=== PATIENT | female | born 1995 | race Caucasian/White ===

== ENCOUNTER 2022-04-26 06:59 | Inpatient (IN) | payer OTHER, SELFPAY ==
[2022-04-26] VITALS (34 sets, daily range): BP systolic 120–195; BP diastolic 58–115; PULSE 70–137; RESP 16–18; TEMP 36.4–37.1; O2SAT 80–100; BMI 25.0
[2022-04-26 07:49] LABS: SARS PCR* Negative SARS-CoV-2 (Negative)
[2022-04-26] MEDS: LACTATED RINGERS 1000 ML 1,000 ML 125 ML IV (08:14)
[2022-04-26] MEDS: fentaNYL 100 MCG/2 ML inj 25 MCG INTRATHECA (08:30)
--- NOTE | 2022-04-26 08:38 | PM.ANBPRC ---
PFSH PFSH Social History Smoking Status: Former smoker Meds Home Medications and Allergies Allergies Allergy/AdvReac Type Severity Reaction Status Date / Time No Known Drug Allergies Allergy Verified 04/26/22 07:03 Results Labs Labs: Laboratory Results - last 24 hr 04/26/22 07:03 SARS-CoV-2 (PCR) Negative SARS-CoV-2 Vital Signs Vital Signs: Last Vital Signs Temp 98.3 F 04/26/22 07:15 Pulse 71 04/26/22 08:38 Resp 16 04/26/22 07:15 BP 126/67 04/26/22 08:38 Pulse Ox 100 04/26/22 08:34 Weight: 72.665 kg Height: 170.18 cm Anesthesia Procedures Intrathecal Patient Location: OB Start Time: 08:25 Stop Time: 08:40 Start Date: 04/26/22 Stop Date: 04/26/22 Reason for Block: procedure for pain Patient Position: sitting Performed By: Yohan Hidalgo Preanesthetic Checklist: IV checked, site marked, risks and benefits discussed, monitors and equipment checked, pre-op evaluation, timeout performed and anesthesia consent Prep: chlorhexidine gluconate Monitoring: blood pressure monitoring, continuous pulse oximetry and heart rate Approach: midline Vertebral Space: lumbar (1-5) Needle Type: Sprotte Injection Technique: single-shot Needle gauge: 24
[2022-04-26] MEDS: OXYTOCIN 30 unit/500 ML in NS 30 UNIT/500 ML BAG 300 UNIT IVPB (09:05)
--- NOTE | 2022-04-26 10:14 | P.OBHP_ITS ---
OB - H&P: HPI Labor/Induction History of Present Illness Time Seen by Provider: 08:00 Date Seen: 04/26/22 Chief Complaint: The patient is a 27 year old 2 para 1 at 40+3 weeks gestation by LMP c/w early US, who presents with contractions. Chief complaint: Maternity : 2 Para: 1 Narrative: Lizbeth Armijo is a 27 year old female at 40+3 weeks gestation by LMP c/w early US who presents with contraction starting overnight. Patient notes that she started to experience low back, cramping pain last evening. She was able to go to sleep around 1:00 a.m., then woke up several hours later with contractions. These became more intense and frequent, presented to Labor and delivery around 7:00 a.m. she was found to be 5cm dilated. GBS negative. Rece ived intrathecal analgesia for pain control. She progressed to complete and a live female infant at 9:03 a.m. baby did require some resuscitation. Eventually brought to the maternal chest. Mom and baby are currently resting comfortably. History of Present Dating criteria: based on LMP care: good care Abnormal ultrasound findings: First-trimester ultrasound consistent with LMP dating. Subchorionic hemorrhage, otherwise normal. 20 week survey without intrinsic abnormalities. EFW to 16th percentile. 28 week growth ultrasound showed EFW 9th percentile, 1229 g. 29 week level 2 ultrasound with perinatology showed EF to be 22nd percentile, 1647 g. Normal anatomic survey. No additional monitoring recommended. Labs Blood type: B (+) positive Rubella: immune RPR/VDLR: nonreactive GBS status: negative HBsAG: negative Review of Systems Status of ROS: Reports: 10 or more systems reviewed and unremarkable except as noted in History and below Meds Home Medications and Allergies Home Medications Medication Instructions Recorded Confirmed Type sertraline 25 mg tablet 25 mg PO BID 04/26/22 04/26/22 History Allergies Allergy/AdvReac Type Severity Reaction Status Date / Time No Known Drug Allergies Allergy Verified 04/26/22 07:03 OB - H&P: Exam Physical Exam: Vital signs: Temp Pulse Resp BP Pulse Ox 98.6 F 85 16 139/63 97 04/26/22 09:35 04/26/22 10:10 04/26/22 09:52 04/26/22 10:10 04/26/22 09:00 Narrative: General appearance: Well-appearing adult female. Alert, oriented and appropri ate. Breathing through contractions. HEENT: EOMI, no conjunctival injection or discharge. Mucous membranes moist. Neck: Supple. Cardiovascular: Regular rate and rhythm, no rubs, murmurs or extra heart sounds. Pulmonary: Clear to auscultation bilaterally. No wheezes, rales or rhonchi. Abdomen: Carotid. MSK: Moving all extremities. Extremities: Warm and well perfused. No lower extremity edema. Neuro: No focal deficits. Psych: Normal affect. Detailed Labor and Delivery Exam: Dilation (cm): 8 Effacement (%): 100 Cervix position: anterior Fetus (Single): Station: +1 Amniotic Membrane Status: intact Heart Rate Baseline: 120 Monitor Accelerations: Present [employer] Variability: Moderate (6-25) OB - Problem Based A/P Additional Plan (1) Term : Status: Acute Plan - Normal post- cares - Post- hgb - Encourage
--- NOTE | 2022-04-26 10:40 | W.PM.GYNPROC ---
Procedure Note Time Seen by Provider: 08:00 Date Seen: 04/26/22 Procedure Details: The patient presented to Labor and delivery with regular contractions starting around 0300. Found to be 5/75%/-1. GBS negative. Patient desired water , consent previously signed in clinic. She got in the tub baths, but shortly thereafter decided to exit the tub. She requested epidural for pain control. Cervix was found to be 8/100/1. Anesthesia placed intrathecal with fair results. SROM occurred at an unknown time for clear fluid. Found to be complete at 855, and started pushing. As the patient crown, heart tones were in the 60s, estimated less than 1 minute. A live female infant was delivered over an intact perineum at 9:03 a.m. Cord was clamped and cut after 1 minute. Infant was brought to the warmer for resuscitation. Patient received IV Pitocin and there was active management of the 3rd stage. Intact placenta delivered at 9:35 a.m. Noted to have moderate calcifications. This will be sent for pathology due to SGA. There were no lacerations. QBL was 150 mL. Apgars were 6, 5 and 7. Resuscitation was performed by Dr. Abdalla. See his documentation for further details. and mother are now resting comfortably together.
[2022-04-26] MEDS: ACETAMINOPHEN 500 MG TABLET 1000 MG PO ×3 (11:07→22:01)
[2022-04-26] MEDS: IBUPROFEN 600 MG TABLET PO ×2 (12:50→18:40)
[2022-04-26] MEDS: SERTRALINE 50 MG TABLET 25 MG PO (22:01)
[2022-04-27 01:08] VITALS: BP 132/73; PULSE 58; RESP 16; TEMP 36.6; O2SAT 97
[2022-04-27] MEDS: IBUPROFEN 600 MG TABLET PO ×2 (01:26→07:36)
[2022-04-27 04:06] VITALS: BP 129/85; PULSE 64; RESP 16; TEMP 36.7; O2SAT 97
[2022-04-27] MEDS: ACETAMINOPHEN 500 MG TABLET 1000 MG PO ×2 (04:10→11:42)
--- NOTE | 2022-04-27 07:46 | P.DS_ITS ---
DS: Providers Provider Time Seen by Provider: 07:46 Date Seen: 04/27/22 Date of admission: 04/26/22 06:59 Primary care physician: Isadora Villaseñor MD Admitting Clinician: Bonnie Matos MD Attending Physician on discharge: Joan Burks MD Date of Discharge: 04/27/22 DS: Diagnosis Discharge Diagnosis (1) (normal spontaneous vaginal delivery): Status: Acute (2) Breast feeding status of mother: Status: Acute (3) Term : Status: Acute Exam Const: Vital Signs, click to edit/add: Vital Signs - 24 hr 04/26/22 08:34 04/26/22 08:38 04/26/22 08:39 Temperature Pulse Rate 71 Pulse Rate [Pulse Oximeter] Respiratory Rate Blood Pressure 126/67 Blood Pressure [Le ft Arm] Pulse Oximetry 100 99 Oxygen Delivery Me thod 04/26/22 08:40 04/26/22 08:42 04/26/22 08:44 Temperature Pulse Rate 77 100 77 Pulse Rate [Pulse Oximeter] Respiratory Rate Blood Pressure 137/80 134/92 H 130/71 Blood Pressure [Le ft Arm] Pulse Oximetry 98 Oxygen Delivery Me thod 04/26/22 08:46 04/26/22 08:48 04/26/22 08:50 Temperature Pulse Rate 85 100 78 Pulse Rate [Pulse Oximeter] Respiratory Rate Blood Pressure 145/78 H 131/58 L 123/59 L Blood Pressure [Le ft Arm] Pulse Oximetry Oxygen Delivery Me thod 04/26/22 08:52 04/26/22 08:54 04/26/22 08:55 Temperature Pulse Rate 86 80 Pulse Rate [Pulse Oximeter] Respiratory Rate Blood Pressure 123/65 139/67 Blood Pressure [Le ft Arm] Pulse Oximetry 98 Oxygen Delivery Me thod 04/26/22 08:56 04/26/22 08:58 04/26/22 09:00 Temperature Pulse Rate 100 120 H 112 H Pulse Rate [Pulse Oximeter] Respiratory Rate Blood Pressure 143/73 H 131/79 139/86 Blood Pressure [Le ft Arm] Pulse Oximetry 97 Oxygen Delivery Me thod 04/26/22 09:03 04/26/22 09:19 04/26/22 09:36 Temperature 97.6 F Pulse Rate 104 H 80 Pulse Rate [Pulse Oximeter] Respiratory Rate 16 Blood Pressure 195/115 H 127/73 Blood Pressure [Le ft Arm] Pulse Oximetry Oxygen Delivery [place] thod 04/26/22 09:52 04/26/22 10:10 04/26/22 10:22 Temperature Pulse Rate 89 85 71 Pulse Rate [Pulse Oximeter] Respiratory Rate Blood Pressure 123/61 139/63 133/65 Blood Pressure [Le ft Arm] Pulse Oximetry Oxygen Delivery Ky thod 04/26/22 10:37 04/26/22 10:52 04/26/22 11:07 Temperature Pulse Rate 70 76 75 Pulse Rate [Pulse Oximeter] Respiratory Rate Blood Pressure 125/71 124/71 129/79 Blood Pressure [Le ft Arm] Pulse Oximetry Oxygen Delivery Ky thod 04/26/22 11:22 04/26/22 11:37 04/26/22 09:35 Temperature 98.6 F Pulse Rate 78 77 Pulse Rate [Pulse Oximeter] Respiratory Rate 18 Blood Pressure 131/75 128/69 Blood Pressure [Le ft Arm] Pulse Oximetry Oxygen Delivery Ky thod 04/26/22 09:52 04/26/22 10:22 04/26/22 10:37 Temperature 98.3 F Pulse Rate Pulse Rate [Pulse Oximeter] Respiratory Rate 16 16 18 Blood Pressure Blood Pressure [Le ft Arm] Pulse Oximetry Oxygen Delivery Ky thod 04/26/22 10:52 04/26/22 11:08 04/26/22 11:22 Temperature 98.6 F 98.2 F 98.6 F Pulse Rate Pulse Rate [Pulse Oximeter] Respiratory Rate 18 16 16 Blood Pressure Blood Pressure [Le ft Arm] Pulse Oximetry Oxygen Delivery Ky thod 04/26/22 11:37 04/26/22 12:47 04/26/22 10:09 Temperature 98.3 F 98.1 F 98.4 F Pulse Rate Pulse Rate [Pulse Oximeter] 78 Respiratory Rate 16 16 16 Blood Pressure Blood Pressure [Le ft Arm] 120/73 Pulse Oximetry [facility] 04/26/22 16:34 04/26/22 20:21 04/27/22 01:08 Temperature 98.7 F 98.2 F 97.9 F Pulse Rate Pulse Rate [Pulse Oximeter] 73 75 58 L Respiratory Rate 16 16 16 Blood Pressure Blood Pressure [Le ft Arm] 129/80 125/78 132/73 Pulse Oximetry 96 97 [facility] Room Air 04/27/22 04:06 Temperature 98.1 F Pulse Rate Pulse Rate [Pulse Oximeter] 64 Respiratory Rate 16 Blood Pressure Blood Pressure [Le ft Arm] 129/85 Pulse Oximetry 97 Oxygen Delivery Me thod Room Air Documenting provider has reviewed patient's vital signs: yes Common normals: no apparent distress, average body habitus and oriented x3 General appearance: cooperative and comfortable HENMT: Common normals: normocephalic and head/scalp atraumatic Head and scalp: normocephalic and atraumatic Neck & C-Spine: Common normals: full ROM Chest: Common normals: inspection of chest normal Resp: Common normals: normal respiratory effort and clear to auscultation bilaterally Auscultation: clear to auscultation bilaterally Cardio: Common normals: regular rate, regular rhythm, S1 normal heart sound, S2 normal heart sound and no murmurs Rate: regular rate Rhythm: regular rhythm Heart sounds: S1 normal and S2 normal : Uterus: U/1 Manual OB Exam: deferred Extremity: Common normals: normal to inspection, no calf tenderness and no pedal edema Neuro: Common normals: oriented x3 Psych: Appearance: grossly normal Skin: Common normals: no rashes or lesions noted General skin exam: no darrion hes or lesions noted OB - DS: Summary Hospital Course Hospital Course: The patient is a 27 year old G 2 P 2 at 40w3d gestation that was admitted to the Center on 04/26/22 for active labor. She had an uncomplicated vaginal delivery. She delivered a viable female infant. She is breast feeding. Postpartu m the patient has done well. Peripartum Data delivery method: Vaginal complications: retained placenta (35 minutes after delivery came spontaneously) Gender: Female Discharge Plan: Home Time Spent with Patient Time attestation: Total time spent providing and/or coordinating discharge services: Discharge Plan Discharge Disposition: Home, Self-Care Date of Admission: 04/26/22 06:59 Attending Provider on Discharge: Joan Burks Primary Care Provider: Isadora Villaseñor I Condition: Stable Anticipated Discharge Date/Time: 04/27/22 11:00 Discharge Medications: Continued sertraline 25 mg tablet 25 mg PO BID Label Comments: Take 2 Tablets (50 mg) by mouth at bedtime. Discharge Orders: Discharge Order (Routine); Ordered 04/27/22 Ordered By: Joan Burks Consulting provider completed their portion of the discharge: Yes Patient Education: OB Vaginal/Breast Feeding Activity Level: Activity as Tolerated Activity Detail: Pelvic rest x 6 weeks, nothing in the vagina Discharge Diet: Regular Follow Up Appointments: Isadora Villaseñor MD [Primary Care Provider] - [facility] Discharge Comments: Continue vitamin while . Use tylenol/ibuprofen as needed for pain management.
[2022-04-27 08:07] LABS: Hemoglobin* 11.9 gm/dL (12.0-16.0)
[2022-04-27 08:36] VITALS: BP 118/77; PULSE 68; RESP 18; TEMP 36.6; O2SAT 97
[2022-04-27] MEDS: DOCUSATE SODIUM 100 MG CAPSULE PO (09:07)
[2022-04-27] MEDS: SERTRALINE 50 MG TABLET 25 MG PO (09:08)
== END 2022-04-27 15:10 | disposition home or self-care (01) | DRG 807 ==
LOC: OB CLI 07:00 → OB 07:00
PROVIDERS: Admitting Provider Family Medicine; PCP Family Medicine; Visit Provider Family Medicine
DX: O80 Encounter for full-term uncomplicated delivery (principal); Z37.0 Single live birth; Z3A.40 40 weeks gestation of pregnancy
CPT/HCPCS: 01967; 36415; 80053; 85018; 87635; 88307; A9270; J2370; J3010; J7120